=== PATIENT | female | born 1975 | race Caucasian/White ===

== ENCOUNTER 2017-01-11 06:50 | Emergency (ER) | payer OTHER ==
[2017-01-11 07:38] VITALS: BP 143/99; PULSE 97; TEMP 98.3; BMI 33.0
--- NOTE | 2017-01-11 07:47 | PDOC ---
History of Present Illness - General Chief Complaint: Ear Problem Stated Complaint: EAR PROBLEM Time Seen by Provider: 01/11/17 07:44 - History of Present Illness Initial Comments: 01/11/17 07:47 The patient is a 41 year old female with a significant past medical history of depression who presents to the emergency department with a 3 day history of feeling like there is something crawling in her ear. She reports 7/10 pain and says that she has some headache. The patient denies chest pain, shortness of breath, and dizziness. Denies fever , chills, nausea, vomit, diarrhea and constipation. Denies dysuria, frequency, urgency and hematuria. Allergies: NKDA Past surgical history: Appendectomy and breast augmentation Social history: Social alcohol / smoking Past History - Past Medical History Allergies/Adverse Reactions: Allergies Allergy/AdvReac Type Severity Reaction Status Date / Time No Known Allergies Allergy Verified 01/11/17 07:38 Home Medications: Ambulatory Orders Hydrochlorothiazide [Hctz -] 12.5 mg PO DAILY 07/10/15 Clonazepam [Klonopin] 1 mg PO HS 12/18/15 Risperidone [Risperdal] 2 mg PO DAILY 12/18/15 Sertraline HCl [Zoloft -] 100 mg PO DAILY 12/18/15 Trazodone HCl [Desyrel -] 100 mg PO HS 12/18/15 HTN: Yes Hypercholesterolemia: Yes Psychiatric Problems: Yes (DEPRESSION/anxiety) - Surgical History Abdominal Surgery: Yes Appendectomy: Yes - Immunization History Immunization Up to Date: Yes - Suicide/Smoking/Psychosocial Hx Smoking History: Former smoker Have you smoked in the past 12 months: Yes Number of Cigarettes Smoked Daily: 2 If you are a former smoker, when did you quit?: unk Information on smoking cessation initiated: No Hx Alcohol Use: No Drug/Substance Use Hx: No Substance Use Type: Alcohol, Cocaine, Marijuana Review of Systems - Review of Systems Comments:: 01/11/17 07:47 GENERAL/CONSTITUTIONAL: No fever or chills. No weakness. HEAD, EYES, EARS, NOSE AND THROAT: +R ear pain 7/10. No change in vision. No sore throat. CARDIOVASCULAR: No chest pain or shortness of breath RESPIRATORY: No cough, wheezing, or hemoptysis. GASTROINTESTINAL: No nausea, vomiting, diarrhea or constipation. GENITOURINARY: No dysuria, frequency, or change in urination. MUSCULOSKELETAL: No joint or muscle swelling or pain. No neck or back pain. SKIN: No rash NEUROLOGIC: +Occasional headache, no vertigo, loss of consciousness, or change in strength/sensation. ENDOCRINE: No increased thirst. No abnormal weight change HEMATOLOGIC/LYMPHATIC: No anemia, easy bleeding, or history of blood clots. ALLERGIC/IMMUNOLOGIC: No hives or skin allergy. *Physical Exam - Vital Signs Last Vital Signs Temp Pulse Resp BP Pulse Ox 98.3 F 97 H 14 143/99 100 01/11/17 07:33 01/11/17 07:33 01/11/17 07:33 01/11/17 07:33 01/11/17 07:33 - Physical Exam Comments: 01/11/17 07:47 GENERAL: Awake, alert, and fully oriented, in no acute distress HEAD: No signs of trauma, normocephalic, atraumatic EYES: PERRLA, EOMI, sclera anicteric, conjunctiva clear ENT: +R TM showed fluid bubbles behind it. No redness or protrusion. Auricles normal inspection, hearing grossly normal, nares patent, oropharynx clear without exudates. Moist mucosa NECK: Normal ROM, supple, no lymphadenopathy, JVD, or masses LUNGS: No distress, speaks full sentences, clear to auscultation bilaterally HEART: Regular rate and rhythm, normal S1 and S2, no murmurs, rubs or gallops, peripheral pulses normal and equal bilaterally. ABDOMEN: Soft, nontender, normoactive bowel sounds. No guarding, no rebound. No masses EXTREMITIES: Normal inspection, Normal range of motion, no edema. No clubbing or cyanosis. NEUROLOGICAL: Cranial nerves II through XII grossly intact. Normal speech, normal gait, no focal sensorimotor deficits SKIN: Warm, Dry, normal turgor, no rashes or lesions noted. 01/11/17 08:08 Medical Decision Making - Medical Decision Making 01/11/17 08:08 Exam revealed fluid behind R tympanic membrane. Patient advised this is likely due to allergies and can self treat with drinking fluids and chewing gum to promote drainage. Will D/C to home with instructions to follow-up as needed. *DC/Admit/Observation/Transfer Diagnosis at time of Disposition: Serous otitis media Qualifiers: Chronicity: acute Laterality: right Recurrence: not specified as recurrent Qualified Code(s): H65.01 - Acute serous otitis media, right ear - Discharge Dispostion Disposition: HOME - Patient Instructions Printed Discharge Instructions: Eustachian Tube Dysfunction Additional Instructions: Thank you for coming in today - we hope you feel better soon. Please return if any increase in pain, fever, or other concerning symptoms.
--- NOTE | 2017-01-11 08:17 | PDOC ---
Attending Attestation - Resident Resident Name: Fam Colorado - ED Attending Attestation I have performed the following: I have examined & evaluated the patient, The case was reviewed & discussed with the resident, I agree w/resident's findings & plan, Exceptions are as noted - HPI HPI: 01/11/17 08:16 "Pop"/"Cracking" feels like she has water in her ear..... thought it might be an insect in the canal. - Physicial Exam PE: 01/11/17 08:17 No insect- Fluid behind a flat TM - Medical Decision Making 01/11/17 08:[address] Colorado's assessment and plan
== END 2017-01-11 08:35 | disposition home or self-care (01) ==
LOC: JER 06:50
DX: H65.01 Acute serous otitis media, right ear (principal); F32.9 Major depressive disorder, single episode, unspecified; I10 Essential (primary) hypertension; E78.00 Pure hypercholesterolemia, unspecified; Z87.891 Personal history of nicotine dependence
CPT/HCPCS: 99281-25

== ENCOUNTER 2017-05-18 19:01 | Inpatient (IN) | payer OTHER ==
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
[2017-05-18 20:04] VITALS: BMI 34.0
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
[2017-05-18 20:44] LABS: URINE APPEARANCE CLEAR; URINE BILIRUBIN NEGATIVE (NEGATIVE); URINE BLOOD NEGATIVE (NEGATIVE); URINE COLOR STRAW; URINE GLUCOSE (UA) NEGATIVE (NEGATIVE); URINE KETONE NEGATIVE (NEGATIVE); URINE LEUK ESTERASE NEGATIVE (NEGATIVE); URINE NITRITE NEGATIVE (NEGATIVE); URINE PROTEIN NEGATIVE (NEGATIVE); URINE UROBILINOGEN NEGATIVE mg/dL (0.2-1.0)
[2017-05-18 21:54] LABS: BASO % 0.5 % (0-2.0); EOS % 0.9 % (0-4.5); HEMATOCRIT 41.2 % (32.4-45.2); HEMOGLOBIN 13.8 GM/dL (10.7-15.3); LYMPH % 28.4 % (8-40); MCHC 33.6 g/dl (32.0-36.0); MEAN CELL VOLUME 89.4 fl (80-96); MEAN PLT VOLUME 9.5 fl (7.5-11.1); MONO % 5.3 % (3.8-10.2); NEUT % 64.9 % (42.8-82.8); PLATELET COUNT 260 K/MM3 (134-434); RBC 4.61 M/mm3 (3.60-5.2); RDW 13.2 % (11.6-15.6); WHITE BLOOD COUNT 9.5 K/mm3 (4.0-10.0)
[2017-05-18 22:09] LABS: ALBUMIN 3.8 g/dl (3.4-5.0); ANION GAP 7 (8-16); BILIRUBIN,TOTAL 0.4 mg/dL (0.2-1.0); BLOOD UREA NITROGEN 16 mg/dL (7-18); CALCIUM 9.7 mg/dL (8.5-10.1); CHLORIDE 105 mmol/L (98-107); CO2 28 mmol/L (21-32); CREATININE 0.8 mg/dL (0.55-1.02); GLUCOSE,RANDOM 89 mg/dL (74-106); POTASSIUM 3.9 mmol/L (3.5-5.1); SGOT/AST 25 U/L (15-37); SGPT/ALT 25 U/L (12-78); SODIUM 140 mmol/L (136-145); TOT PROT 7.5 g/dl (6.4-8.2)
[2017-05-18 22:10] LABS: ALK PHOS 92 U/L (45-117); INR 1.09 (0.82-1.09); PROTHROMBIN TIME (PATIENT) 12.3 SEC (9.98-11.88)
[2017-05-18 22:12] LABS: ACTIVATED PTT 31.1 SECONDS (26.9-34.4)
[2017-05-18 22:13] LABS: ALCOHOL < 5.0 mg/dl (0-5)
[2017-05-18 22:17] LABS: SALICYLATE < 4.0 mg/dl (0.0-30.0)
[2017-05-18 22:44] LABS: ACETAMINOPHEN < 2.0 ug/ml (10.0-30.0)
--- NOTE | 2017-05-19 00:14 | PN ---
Teaching Attending Note Name of Resident: Josiah Blanco ATTENDING PHYSICIAN STATEMENT I saw and evaluated the patient. I reviewed the resident's note and discussed the case with the resident. I agree with the resident's findings and plan as documented. SUBJECTIVE: 41 yo F with Pmhx. of HTN, HLD, anxiety, depression, and multiple suidcide attempts who presents after ingesting "Chava Espitia." Pt. States she has been having suicidal/homicidal Ideation. States she has some nausea. No chest pain, pressure or shortness of breath. ED COURSE: Chava Dominicitos is Aldicarb Choliesterase Inhibitor (Cabamate) OBJECTIVE: Physical: VS: Vital Signs Period Temp Pulse Resp BP Sys/Berg Pulse Ox Last 24 Hr 99.7 F 120 20 114/92 99 GEN: NAD, resting in bed, AAOX3 HEENT: NCAT, PERRL, throat without erythema or exudates CARD: RRR S1, S2 RESP: CTAB ABD: BSx4, NTD to palpation EXT: - C/C/E CBCD WBC 9.5 K/mm3 (4.0-10.0) D 05/18/17 21:35 RBC 4.61 M/mm3 (3.60-5.2) 05/18/17 21:35 Hgb 13.8 GM/dL (10.7-15.3) 05/18/17 21:35 Hct 41.2 % (32.4-45.2) 05/18/17 21:35 MCV 89.4 fl (80-96) 05/18/17 21:35 MCHC 33.6 g/dl (32.0-36.0) 05/18/17 21:35 RDW 13.2 % (11.6-15.6) 05/18/17 21:35 Plt Count 260 K/MM3 (134-434) 05/18/17 21:35 MPV 9.5 fl (7.5-11.1) 05/18/17 21:35 CMP Sodium 140 mmol/L (136-145) 05/18/17 21:35 Potassium 3.9 mmol/L (3.5-5.1) 05/18/17 21:35 Chloride 105 mmol/L (98-107) 05/18/17 21:35 Carbon Dioxide 28 mmol/L (21-32) 05/18/17 21:35 Anion Gap 7 (8-16) L 05/18/17 21:35 BUN 16 mg/dL (7-18) 05/18/17 21:35 Creatinine 0.8 mg/dL (0.55-1.02) 05/18/17 21:35 Creat Clearance w eGFR > 60 (>60) 05/18/17 21:35 Random Glucose 89 mg/dL (74-106) 05/18/17 21:35 Calcium 9.7 mg/dL (8.5-10.1) 05/18/17 21:35 Total Bilirubin 0.4 mg/dL (0.2-1.0) 05/18/17 21:35 AST 25 U/L (15-37) 05/18/17 21:35 ALT 25 U/L (12-78) 05/18/17 21:35 Alkaline Phosphatase 92 U/L (45-117) 05/18/17 21:35 Total Protein 7.5 g/dl (6.4-8.2) 05/18/17 21:35 Albumin 3.8 g/dl (3.4-5.0) 05/18/17 21:35 ekg: sinus at 86, nl axis, nl interval, no acute st/t wave findings CXR- No acute Process ASSESSMENT AND PLAN: 41 yo F with Pmhx. of HTN, HLD, anxiety, depression, and multiple suidcide attempts who presents after ingesting Carbamate, being admitted for suicidal/ homicidal ideation and ingestion of Cholinesterase Inhibitor 1.) Cholinesterase Inhbitor Poisoning - Poison control called by ED - Recc Atrophine if Symptoms Develop. including bradycardia - Usually sx. dev. over 6 hours - IVF 2.) Suicidal/Homicidal Ideation - 1:1 Observation - Psych. consult 3.) Dvt ppx - SCDS Place in [place]-Tele
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
[2017-05-19 02:21] LABS: COCAINE, UR NEGATIVE ng/ml (CUTOFF=300); METHADONE, UR NEGATIVE ng/ml (CUTOFF=300); OPIATES, URI NEGATIVE ng/ml (CUTOFF=300); PHENCYCLIDINE,URINE NEGATIVE ng/ml (CUTOFF=25); URINE AMPHETAMINES NEGATIVE ng/ml (CUTOFF=500); URINE BARBITURATES NEGATIVE ng/ml (CUTOFF=200); URINE BENZODIAZEPINES NEGATIVE ng/ml (CUTOFF=200)
[2017-05-19] MEDS: HYDROCHLOROTHIAZIDE 12.5 MG CAPSULE (FP) PO SCH (10:40)
--- NOTE | 2017-05-19 10:57 | EKG ---
Test Reason : Blood Pressure : / mmHG Vent. Rate : 096 BPM Atrial Rate : 096 BPM P-R Int : 140 ms QRS Dur : 074 ms QT Int : 346 ms P-R-T Axes : 043 045 018 degrees QTc Int : 437 ms NORMAL SINUS RHYTHM NORMAL ECG WHEN COMPARED WITH ECG OF 18-MAY-2017 21:10, NO SIGNIFICANT CHANGE WAS FOUND Confirmed by ARASELI THAKKAR MD ([id number]) on 05/19/2017 10:57:22 AM Referred By: Confirmed By:ARASELI THAKKAR MD
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
[2017-05-19] MEDS ORDERED: SODIUM CHLORIDE 0.45% 1,000 ML IV SCH (11:45)
[2017-05-19] MEDS ORDERED: risperiDONE 2 MG TABLET PO SCH (14:30)
[2017-05-19] MEDS ORDERED: SERTRALINE HCL 50 MG TABLET (FP) PO SCH (14:30)
[2017-05-19] MEDS ORDERED: risperiDONE 1 MG TABLET (FP) PO SCH (14:53)
--- NOTE | 2017-05-19 14:57 | CON.CARD ---
Consult Consult Specialty:: Cardiology Reason for Consultation:: Abnormal ECG - History of Present Illness History of Present Illness: 41 year old female, with medical history of hypertension, hyperlipidemia, anxiety, depression, schizophrenia and multiple suicidal attempts, not taking meds from one week. presented to the emergency department s/p Chava pasitos consumption secondary to suicidal. Patient currently denies any chest pain, shortness of breath, diaphoresis, or palpitations. ECG in ER showed transient T wave abnormality isolated to V4 and 1. - History Source Limitations to Obtaining History: No Limitations - Past Medical History Cardio/Vascular: Yes: HTN. No: AFIB, Aortic Stenosis ...LMP: 07/01/15 - Alcohol/Substance Use Hx Alcohol Use: No - Smoking History Smoking history: Current some day smoker Have you smoked in the past 12 months: Yes Aproximately how many cigarettes per day: 2 If you are a former smoker, when did you quit?: unk Home Medications - Allergies Allergies/Adverse Reactions: Allergies Allergy/AdvReac Type Severity Reaction Status Date / Time No Known Allergies Allergy Verified 05/18/17 20:00 - Home Medications Home Medications: Ambulatory Orders Hydrochlorothiazide [Hctz -] 12.5 mg PO DAILY 07/10/15 Clonazepam [Klonopin] 1 mg PO HS 12/18/15 Risperidone [Risperdal] 2 mg PO DAILY 12/18/15 Sertraline HCl [Zoloft -] 100 mg PO DAILY 12/18/15 Trazodone HCl [Desyrel -] 100 mg PO HS 12/18/15 Review of Systems - Review of Systems Constitutional: reports: No Symptoms Eyes: reports: No Symptoms HENT: reports: No Symptoms Neck: reports: No Symptoms Cardiovascular: reports: No Symptoms. denies: Chest Pain, Edema, Palpitations, Shortness of Breath Respiratory: denies: Cough, SOB, SOB on Exertion Gastrointestinal: reports: Nausea Vital Signs: Vital Signs Temperature 98.4 F 05/19/17 09:12 Pulse Rate 93 H 05/19/17 13:58 Respiratory Rate 20 05/19/17 13:58 Blood Pressure 131/82 05/19/17 13:58 O2 Sat by Pulse Oximetry (%) 99 05/19/17 12:22 Constitutional: Yes: Well Nourished, No Distress, Calm Eyes: Yes: Conjunctiva Clear, EOM Intact HENT: Yes: Atraumatic, Normocephalic Neck: Yes: Supple, Trachea Midline Respiratory: Yes: Regular, CTA Bilaterally Gastrointestinal: Yes: Normal Bowel Sounds, Soft Cardiovascular: Yes: Regular Rate and Rhythm JVD: No Carotid Bruit: No Heart Sounds: Yes: S1, S2 Murmur: No: Systolic Murmur, Diastolic Murmur Edema: No - Other Data Labs, Other Data: CBC, BMP 05/18/17 21:35 05/18/17 21:35 INR, PTT INR 1.09 (0.82-1.09) 05/18/17 21:35 Troponin, BNP 05/19/17 05/19/17 02:20 06:22 Troponin I < 0.02 < 0.02 Troponin, BNP 05/19/17 05/19/17 02:20 06:22 Troponin I < 0.02 < 0.02 NSR with normal axis and intervals. Imaging - Results Chest X-ray: Report Reviewed Problem List - Problems (1) Hallucinations Code(s): R44.3 - HALLUCINATIONS, UNSPECIFIED (2) Homicidal ideations Code(s): R45.850 - HOMICIDAL IDEATIONS (3) Suicidal overdose Code(s): T50.902A - POISONING BY UNSP DRUG/MEDS/BIOL SUBST, SELF-HARM, INIT Assessment/Plan ECG findings do not suggest myocardial injury. No signs or symptoms of cardiac ischemia No arrhythmias on telemetry. Will see as needed
--- NOTE | 2017-05-19 15:08 | CON.PSY ---
Psychiatry Consult Chief Complaint: I drank Poison to kill my self, I have done this before. I felt very depressed, stopped taking meds. Symptoms: reports: Depressed Mood, Suicidality, Self destructive thoughts - Previous Psychiatric Treatment Outpatient: More than 6 mos ago Inpatient: 2 or more prior admissions - Previous Substance Abuse Treatment Outpatient: None Inpatient: None - Reason for Previous Treatment Reason for Previous Treatment: Major Depression - Current Medications Current Medications: Active Medications Clonazepam (Klonopin -) 1 mg PO HS [facility] Hydrochlorothiazide (Hctz -) 12.5 mg PO DAILY KEI Last Admin: 05/19/17 10:40 Dose: 12.5 mg Risperidone (Risperdal -) 2 mg PO DAILY KEI Sertraline HCl (Zoloft -) 100 mg PO DAILY KEI Trazodone HCl (Desyrel -) 100 mg PO HS [facility] - Allergies Allergies: Allergies Allergy/AdvReac Type Severity Reaction Status Date / Time No Known Allergies Allergy Verified 05/18/17 20:00 - Current Living Status Usual Living Arrangement: Alone - Current Mental Status Evaluation Appearance: Well Groomed Attitude: Cooperative - Affect Affect: Constrictive Appropriateness: Appropriate to Content - Mood Mood: Depressed - Speech/Language Expressive: Coherent - Psychomotor Activity Psychomotor Activity: Slowed - Thought Process Thought Process: Intact - Thought Content Hallucinations: Absent Delusions: Absent - Self Perception Self Perception: No Impairment - Cognition Attention: Alert Orientation: Time Memory, Immediate Recall: Impaired Memory, Short Term: 2/3 Memory, Remote with Promptin/3 - Concentration Serial Sevens Intact: No Simple Calculations Intact: No - Abstraction Proverb Interpretation: Impaired Judgement: Severely Impaired - Insight Insight: Impaired - Impulse Control Impulse Control: Moderately Impaired - Suicidal Ideation Suicidal Ideation: Yes (drank poison) - Homicidal Ideation Homicidal Ideation: No Assessment/Plan 1) Continue with 1:1 2) Probably needs In Patient Psych Hospitalization.
[2017-05-19] MEDS ORDERED: CYCLOBENZAPRINE HCL 10 MG TABLET (FP) PO PRN (16:52)
[2017-05-19] MEDS: risperiDONE 1 MG TABLET (FP) PO SCH (19:42)
[2017-05-19] MEDS: RANITIDINE HCL 150 MG TABLET (FP) PO SCH (21:13)
[2017-05-19] MEDS: traZODone HCL 50 MG TABLET (FP) PO SCH (21:14)
[2017-05-19] MEDS: clonazePAM 0.5 MG TABLET PO SCH (21:14)
[2017-05-19] MEDS: diphenhydrAMINE HCL 25 MG CAPSULE (FP) PO SCH (21:14)
[2017-05-20 06:58] LABS: INR 1.07 (0.82-1.09); PROTHROMBIN TIME (PATIENT) 12.1 SEC (9.98-11.88)
[2017-05-20 07:18] LABS: BASO % 0.4 % (0-2.0); EOS % 1.5 % (0-4.5); HEMATOCRIT 40.9 % (32.4-45.2); HEMOGLOBIN 13.6 GM/dL (10.7-15.3); LYMPH % 30.6 % (8-40); MCH 29.5 pg (25.7-33.7); MCHC 33.2 g/dl (32.0-36.0); MEAN PLT VOLUME 9.2 fl (7.5-11.1); MONO % 5.5 % (3.8-10.2); PLATELET COUNT 243 K/MM3 (134-434); RDW 12.9 % (11.6-15.6); WHITE BLOOD COUNT 6.8 K/mm3 (4.0-10.0)
[2017-05-20 07:30] LABS: ALBUMIN 3.2 g/dl (3.4-5.0); ANION GAP 7 (8-16); BLOOD UREA NITROGEN 16 mg/dL (7-18); CALCIUM 8.6 mg/dL (8.5-10.1); CHLORIDE 108 mmol/L (98-107); CHOLESTEROL 217 mg/dL (50-200); CO2 24 mmol/L (21-32); CREATININE 0.9 mg/dL (0.55-1.02); GLUCOSE,RANDOM 107 mg/dL (74-106); MAGNESIUM 1.9 mg/dL (1.8-2.4); PHOSPHOROUS 3.1 mg/dL (2.5-4.9); POTASSIUM 4.1 mmol/L (3.5-5.1); SGOT/AST 17 U/L (15-37); SGPT/ALT 19 U/L (12-78); SODIUM 139 mmol/L (136-145)
[2017-05-20 07:32] LABS: ALK PHOS 81 U/L (45-117); BILIRUBIN,TOTAL 0.3 mg/dL (0.2-1.0); HDL CHOLESTEROL 31 mg/dL (40-60); LDL CHOLESTEROL (ONLY SJRH) 168 mg/dL (5-100); TOT PROT 6.7 g/dl (6.4-8.2); TRIGLYCERIDES 117 mg/dL (35-160)
--- NOTE | 2017-05-20 09:56 | EKG ---
Test Reason : Blood Pressure : / mmHG Vent. Rate : 103 BPM Atrial Rate : 103 BPM P-R Int : 140 ms QRS Dur : 080 ms QT Int : 334 ms P-R-T Axes : 048 058 016 degrees QTc Int : 437 ms SINUS TACHYCARDIA NONSPECIFIC T WAVE ABNORMALITY ABNORMAL ECG WHEN COMPARED WITH ECG OF 19-MAY-2017 09:14, NO SIGNIFICANT CHANGE WAS FOUND Confirmed by LUZ THOMPSON MD ([id number]) on 05/20/2017 9:56:28 AM Referred By: Confirmed By:LUZ THOMPSON MD
[2017-05-20] MEDS ORDERED: PT OWN MED DRAWER 7, Y5N ONE (09:58)
[2017-05-20] MEDS: HYDROCHLOROTHIAZIDE 12.5 MG CAPSULE (FP) PO SCH (09:59)
[2017-05-20] MEDS: RANITIDINE HCL 150 MG TABLET (FP) PO SCH ×2 (09:59→21:33)
[2017-05-20] MEDS: SERTRALINE HCL 50 MG TABLET (FP) PO SCH (10:00)
[2017-05-20] MEDS: risperiDONE 1 MG TABLET (FP) PO SCH (10:00)
--- NOTE | 2017-05-20 10:12 | EKG ---
Test Reason : Blood Pressure : / mmHG Vent. Rate : 086 BPM Atrial Rate : 086 BPM P-R Int : 152 ms QRS Dur : 080 ms QT Int : 338 ms P-R-T Axes : 056 060 025 degrees QTc Int : 404 ms NORMAL SINUS RHYTHM CANNOT RULE OUT ANTERIOR INFARCT , AGE UNDETERMINED ABNORMAL ECG Confirmed by LUZ THOMPSON MD ([id number]) on 05/20/2017 10:11:36 AM Referred By: Confirmed By:LUZ THOMPSON MD
[2017-05-20] MEDS: IBUPROFEN 600 MG TABLET (FP) PO PRN (11:07)
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
[2017-05-20] MEDS: traZODone HCL 50 MG TABLET (FP) PO SCH (21:34)
[2017-05-20] MEDS: clonazePAM 0.5 MG TABLET PO SCH (21:34)
[2017-05-20] MEDS: diphenhydrAMINE HCL 25 MG CAPSULE (FP) PO SCH (21:34)
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
[2017-05-21] MEDS: IBUPROFEN 600 MG TABLET (FP) PO PRN (08:49)
[2017-05-21] MEDS: risperiDONE 1 MG TABLET (FP) PO SCH (09:05)
[2017-05-21] MEDS: SERTRALINE HCL 50 MG TABLET (FP) PO SCH (09:05)
[2017-05-21] MEDS: RANITIDINE HCL 150 MG TABLET (FP) PO SCH ×2 (09:05→21:14)
[2017-05-21] MEDS: HYDROCHLOROTHIAZIDE 12.5 MG CAPSULE (FP) PO SCH (09:06)
[2017-05-21] MEDS: clonazePAM 0.5 MG TABLET PO SCH (21:14)
[2017-05-21] MEDS: diphenhydrAMINE HCL 25 MG CAPSULE (FP) PO SCH (21:14)
[2017-05-21] MEDS: traZODone HCL 50 MG TABLET (FP) PO SCH (21:14)
[2017-05-22] MEDS ORDERED: PT OWN MED DRAWER 7, Y5N ONE (07:57)
[2017-05-22] MEDS: HYDROCHLOROTHIAZIDE 12.5 MG CAPSULE (FP) PO SCH (09:09)
[2017-05-22] MEDS: SERTRALINE HCL 50 MG TABLET (FP) PO SCH (09:09)
[2017-05-22] MEDS: RANITIDINE HCL 150 MG TABLET (FP) PO SCH ×2 (09:09→21:30)
[2017-05-22] MEDS: risperiDONE 1 MG TABLET (FP) PO SCH (09:09)
[2017-05-22] MEDS ORDERED: SODIUM CHLORIDE 500 ML IV STA (18:46)
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
[2017-05-22] MEDS ORDERED: SODIUM CHLORIDE 1,000 ML IV SCH (19:00)
[2017-05-22] MEDS: ENOXAPARIN NA (PORCINE) 40 MG/0.4 ML DISP.SYRIN SQ SCH (21:30)
[2017-05-22] MEDS ORDERED: traZODone HCL 50 MG TABLET (FP) PO SCH (22:00)
[2017-05-22] MEDS ORDERED: diphenhydrAMINE HCL 25 MG CAPSULE (FP) PO SCH (22:00)
[2017-05-22] MEDS ORDERED: clonazePAM 0.5 MG TABLET PO SCH (22:00)
[2017-05-23] MEDS: RANITIDINE HCL 150 MG TABLET (FP) PO SCH (09:13)
[2017-05-23] MEDS: ENOXAPARIN NA (PORCINE) 40 MG/0.4 ML DISP.SYRIN SQ SCH (09:14)
[2017-05-23] MEDS ORDERED: SERTRALINE HCL 50 MG TABLET (FP) PO SCH (10:00)
[2017-05-23] MEDS ORDERED: HYDROCHLOROTHIAZIDE 12.5 MG CAPSULE (FP) PO SCH (10:00)
[2017-05-23] MEDS ORDERED: risperiDONE 1 MG TABLET (FP) PO SCH (10:00)
[2017-05-23 11:09] VITALS: BP 116/72; PULSE 90; TEMP 98.5
--- NOTE | 2017-05-23 12:47 | EKG ---
Test Reason : Blood Pressure : / mmHG Vent. Rate : 100 BPM Atrial Rate : 100 BPM P-R Int : 146 ms QRS Dur : 080 ms QT Int : 306 ms P-R-T Axes : 042 057 -27 degrees QTc Int : 394 ms NORMAL SINUS RHYTHM NONSPECIFIC T WAVE ABNORMALITY ABNORMAL ECG WHEN COMPARED WITH ECG OF 20-MAY-2017 09:07, NO SIGNIFICANT CHANGE WAS FOUND Confirmed by LORNA STILES MD ([id number]) on 05/23/2017 12:47:19 PM Referred By: TENZIN Confirmed By:LORNA STILES MD
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
== END 2017-05-23 11:49 | disposition short-term general hospital (02) | DRG 812 ==
LOC: JER 19:01 → JERBED 23:53 → UNDOADMIN 05-19 00:04 → JERBED 05-19 00:04 → J4W 05-19 13:48 → J5S 05-22 15:05
PROVIDERS: ADMIT Internal Medicine; ATTEND Internal Medicine
DX: T50.6X2A Poisoning by antidotes and chelating agents, intentional self-harm, initial encounter (principal); T60.0X2A Toxic effect of organophosphate and carbamate insecticides, intentional self-harm, initial encounter; R45.851 Suicidal ideations; R45.850 Homicidal ideations; F43.10 Post-traumatic stress disorder, unspecified; I10 Essential (primary) hypertension; F32.9 Major depressive disorder, single episode, unspecified; F41.9 Anxiety disorder, unspecified; E78.5 Hyperlipidemia, unspecified; F14.90 Cocaine use, unspecified, uncomplicated; F12.90 Cannabis use, unspecified, uncomplicated; Z72.0 Tobacco use; Y92.098 Other place in other non-institutional residence as the place of occurrence of the external cause; F20.9 Schizophrenia, unspecified
CPT/HCPCS: 36415; 71045-TC; 80053; 80061; 80307; 81003; 82550; 83721; 83735; 84100; 84484; 84703; 85025; 85610; 85730; 93005; 93010; 99285-25; J2794